=== PATIENT | male | born 1980 | race American Indian/Alaskan Native ===

== ENCOUNTER 2016-10-30 14:30 | Emergency (ER) | payer OTHER ==
[2016-10-30 15:15] VITALS: BP 109/67
--- NOTE | 2016-10-30 19:14 | Emergency Department Report ---
ED General Adult HPI - General Chief complaint: Medical Clearance Stated complaint: HERNIA Time Seen by Provider: 10/30/16 19:00 Source: patient Mode of arrival: Ambulatory Limitations: No Limitations - History of Present Illness Initial comments: Patient requesting medical clearance to return to work after being diagnosed with inguinal hernias sometime ago. Patient denies being bothered by the hernia now, denies abdominal pain, nausea vomiting fever or chills, or anorexia. Also denies testicular pain. Location: genitals Radiation: non-radiation Severity scale (0 -10): 0 Quality: aching Consistency: intermittent Improves with: immobilization, movement Associated Symptoms: denies other symptoms - Related Data Previous Rx's Medication Instructions Recorded Last Taken Type traMADol [Ultram] 50 mg PO Q6HR PRN #14 tablet 04/24/16 Unknown Rx Allergies Allergy/AdvReac Type Severity Reaction Status Date / Time No Known Allergies Allergy Unverified 04/24/16 20:44 ED Review of Systems ROS: Stated complaint: HERNIA Other details as noted in HPI Constitutional: denies: chills, fever Eyes: denies: eye pain, eye discharge, vision change ENT: denies: ear pain, throat pain Respiratory: denies: cough, shortness of breath, wheezing Cardiovascular: denies: chest pain, palpitations Gastrointestinal: denies: abdominal pain, nausea, vomiting, diarrhea, constipation, hematemesis, hematochezia Genitourinary: denies: urgency, dysuria, frequency, hematuria, discharge, testicular pain, testicular mass Skin: as per HPI. denies: rash, lesions ED Past Medical Hx - Past Medical History Additional medical history: right inguinal hernia - Surgical History Past Surgical History?: No - Social History Smoking Status: Never Smoker Substance Use Type: None - Medications Home Medications: Home Medications Medication Instructions Recorded Confirmed Last Taken Type traMADol [Ultram] 50 mg PO Q6HR PRN #14 tablet 04/24/16 Unknown Rx ED Physical Exam - General Limitations: No Limitations General appearance: alert, in no apparent distress - Head Head exam: Present: atraumatic, normocephalic - Eye Eye exam: Present: normal appearance - ENT ENT exam: Present: mucous membranes moist - Neck Neck exam: Present: normal inspection - Respiratory Respiratory exam: Absent: respiratory distress - Cardiovascular Cardiovascular Exam: Present: regular rate - GI/Abdominal GI/Abdominal exam: Present: soft, hernia (mild, easily reducible right inguinal hernia with no protrusion at this time). Absent: distended, tenderness, guarding, rebound, rigid - exam: Absent: testicular tenderness, urethral discharge, scrotal swelling - Neurological Exam Neurological exam: Present: alert, oriented X3 - Skin Skin exam: Present: warm, dry, intact, normal color. Absent: rash - Other Other exam information: I advised patient that I cannot clear him to go back to work that only a general surgeon could assess his hernia and clear him to go back to work I would write him a work note for today alone that stated ," it is up to patient if he feels capable to work starting tomorrow"," patient must follow-up with general surgeon". ED Course Vital Signs 10/30/16 15:12 Temperature 98.2 F Pulse Rate 67 Respiratory 18 Rate Blood Pressure 109/67 O2 Sat by Pulse 100 Oximetry Critical care attestation.: If time is entered above; I have spent that time in minutes in the direct care of this critically ill patient, excluding procedure time. ED Disposition Clinical Impression: Inguinal hernia Disposition: DISCHARGED TO HOME OR SELFCARE Is pt being admited?: No Does the pt Need Aspirin: No Condition: Stable Instructions: Inguinal Hernia (ED) Referrals: PRIMARY CAREMD [Primary Care Provider] - 3-5 Days WAQAR MODI MD [Staff Physician] - 3-5 Days Time of Disposition: 19:20
== END 2016-10-30 19:20 | disposition home or self-care (01) ==
LOC: ED 14:30
DX: K40.90 Unilateral inguinal hernia, without obstruction or gangrene, not specified as recurrent (principal)
CPT/HCPCS: 99282